=== PATIENT | female | born 1995 | race Caucasian/White ===

== ENCOUNTER 2024-11-23 00:58 | Inpatient (IN) | payer BC ==
[~2024-11-23] VITALS: Ht 160 cm; Wt 59.0 kg
[2024-11-23] MEDS ORDERED: ONDANSETRON HCL/PF 4 MG/2 ML VIAL ONE (01:57)
[2024-11-23] MEDS ORDERED: KETOROLAC TROMETHAMINE INJ 30 MG/ML VIAL ONE (01:57)
[2024-11-23] MEDS: KETOROLAC TROMETHAMINE INJ 30 MG/ML VIAL IV ONE (01:58)
[2024-11-23] MEDS: ONDANSETRON HCL/PF - ER 4 MG/2 ML VIAL IV ONE (01:58)
[2024-11-23 02:00] LABS: PLATELET COUNT (AUTO) 259 K/uL (150-450); RED BLOOD CELL COUNT(AUTO) 4.29 MIL/uL (4.0-5.2); RED CELL DISTRIBUTION WIDTH 14.0 % (11.5-15.0); WHITE BLOOD COUNT (AUTO) 11.3 K/uL (4.3-11.0)
[2024-11-23 02:02] LABS: APPEARANCE,URINE CLEAR (CLEAR); BLOOD, URINE NEGATIVE Ery/uL (NEGATIVE); LEUKOCYTE ESTERASE ,URINE NEGATIVE (NEGATIVE); NITRITE, URINE NEGATIVE (NEGATIVE); UGLUCOSE NEGATIVE (NEGATIVE)
[2024-11-23 02:05] LABS: PREGNANCY TEST URINE QUAL NEGATIVE (NEGATIVE)
[2024-11-23 02:13] LABS: ASPARTATE AMINOTRANSFERASE 12.0 U/L (15-37); CALCIUM, SERUM 9.1 mg/dL (8.5-10.1); CREATININE 0.8 mg/dL (0.6-1.3); SODIUM SERUM 137.0 mmol/L (136-145); TOTAL PROTEIN, SERUM 8.3 g/dL (6.4-8.2); UREA NITROGEN, BLOOD 12.0 mg/dL (7-18)
[2024-11-23] MEDS ORDERED: CEFTRIAXONE 1 G in IV D5W 50 ML IV SCH ×2 (06:00→09:00)
[2024-11-23] MEDS ORDERED: MAG HYDROX/AL HYDROX/SIMETH 30 ML UDC PO PRN (06:00)
[2024-11-23] MEDS ORDERED: MAGNESIUM HYDROXIDE 30 ML UDC PO PRN (06:00)
[2024-11-23] MEDS: METRONIDAZOLE 500MG/ NS 100ML 500 MG in PREMIX 1 EA IV SCH (07:03)
[2024-11-23 08:00] VITALS: BP 115/83; TEMP 98.4; O2SAT 99
[2024-11-23] MEDS: CEFTRIAXONE 1 G in IV D5W 50 ML IV SCH (09:49)
[2024-11-23] MEDS: IV LR 1000 ML 1,000 ML IV SCH (15:13)
[2024-11-23 15:51] VITALS: BP 111/64; TEMP 98.8; O2SAT 95
[2024-11-23] MEDS: HYDROMORPHONE 1 MG/1 ML DISP.SYRIN IV PRN (16:02)
[2024-11-23 18:52] VITALS: BP 111/64; TEMP 98.8; O2SAT 95
[2024-11-23] MEDS ORDERED: ANESTHESIA TRAY IN PYXIS 1 EA TRAY MC ONE (19:53)
[2024-11-23] MEDS ORDERED: BUPIVACAINE 0.5 % PF 150 MG/30 ML VIAL ONE (19:54)
[2024-11-23] MEDS ORDERED: LIDOCAINE 1%-EPI 1:100,000 20 ML VIAL ONE (19:54)
[2024-11-23 20:00] VITALS: BP 99/61; TEMP 98.6; O2SAT 100
[2024-11-23] MEDS ORDERED: FENTANYL PF 100MCG/2ML AMPUL ONE (20:32)
[2024-11-23] MEDS ORDERED: MIDAZOLAM HCL 2 MG/2ML VIAL ONE (20:33)
[2024-11-23] MEDS ORDERED: ROCURONIUM BROMIDE 50 MG/5 ML ONE (20:33)
[2024-11-23] MEDS ORDERED: MEPERIDINE25 MG SYR 25 MG/ML VIAL ONE (22:24)
[2024-11-23] MEDS: ONDANSETRON HCL/PF 4 MG/2 ML VIAL IVP PRN (23:19)
[2024-11-24 07:53] LABS: PLATELET COUNT (AUTO) 240 K/uL (150-450); RED BLOOD CELL COUNT(AUTO) 3.69 MIL/uL (4.0-5.2); WHITE BLOOD COUNT (AUTO) 8.4 K/uL (4.3-11.0)
[2024-11-24 07:54] LABS: RED CELL DISTRIBUTION WIDTH 14.0 % (11.5-15.0)
[2024-11-24 08:00] VITALS: BP 102/69; TEMP 98.2; O2SAT 98
[2024-11-24 08:56] LABS: CALCIUM, SERUM 8.9 mg/dL (8.5-10.1); CREATININE 0.7 mg/dL (0.6-1.3); SODIUM SERUM 138.0 mmol/L (136-145); UREA NITROGEN, BLOOD 14.0 mg/dL (7-18)
[2024-11-24 08:57] LABS: PHOSPHORUS 4.0 mg/dL (2.5-4.9)
[2024-11-24] MEDS: IV LR 1000 ML 1,000 ML IV PRN (09:00)
[2024-11-24] MEDS: ACETAMINOPHEN 325 MG TABLET PO PRN (11:20)
[2024-11-24 16:00] VITALS: BP 105/66; TEMP 98.8; O2SAT 97
[2024-11-24 20:00] VITALS: BP 104/59; TEMP 98.1; O2SAT 100
[2024-11-24] MEDS ORDERED: HYDR-3972 PO (21:47)
[2024-11-24] MEDS ORDERED: METR500T PO (21:47)
[2024-11-24] MEDS ORDERED: CIPR-262 PO (21:47)
[2024-11-25] MEDS: HYDROCODONE/APAP 5/325MG TABLET PO PRN (06:03)
[2024-11-25 08:00] VITALS: BP 107/74; TEMP 98.6; O2SAT 100
== END 2024-11-25 10:45 | disposition home or self-care (01) | DRG 399 ==
LOC: ER 00:58 → MED 07:38
PROVIDERS: ADMIT Nurse Practitioner Acute Care; ATTEND Nurse Practitioner Acute Care
PROC: 0DTJ4ZZ Resection of Appendix, Percutaneous Endoscopic Approach (ICD-10-PCS; principal; 2024-11-23 20:30)
DX: K35.80 Unspecified acute appendicitis (principal); N83.202 Unspecified ovarian cyst, left side; N83.201 Unspecified ovarian cyst, right side; Z87.01 Personal history of pneumonia (recurrent); D72.829 Elevated white blood cell count, unspecified; R73.9 Hyperglycemia, unspecified
CPT/HCPCS: 36415; 76856-TC; 80048-TC; 80053-TC; 83690-TC; 83735-TC; 84100-TC; 84703-TC; 85025-TC; 88304-TC; A4216; A4223; G0378; J0330; J0690; J0696; J1100; J1171; J1885; J2175; J2250; J2405; J2704; J3010; J3490; J7030; J7050; J7060; J7120